=== PATIENT | female | born 1960 ===

== ENCOUNTER 2017-09-16 13:33 | Emergency (ER) | payer OTHER, BC ==
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
[2017-09-16] MEDS ORDERED: NORCO 5/325 PO ONE (18:16)
[2017-09-16] MEDS ORDERED: MOTRIN PO ONE ×2 (18:18→18:19)
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
--- NOTE | 2017-09-16 19:49 | Cat Scan Report ---
FINAL REPORT PROCEDURE: CT LUMBAR SPINE WO CON TECHNIQUE: Computerized axial tomography of the lumbar spine was performed from T12 to the sacrum without contrast material. HISTORY: L1-t12 compression fracture COMPARISON: No prior studies are available for comparison. FINDINGS: There is a acute compression fracture involving the upper 3rd of the L1 vertebral body. There is approximately 30 percent loss height. There is mild retropulsion of a portion of the superior aspect of the posterior endplate. This is flattening the thecal sac. The spinal canal is narrowed slightly greater on the left than the right. I am unable to clearly visualize the conus to determine if there is any compression of the conus. The spinal canal is narrowed approximately 30-40 percent. Pedicles than the remainder of the posterior elements are intact. There is no subluxation. No other fractures are identified. Mild anterior osteophytic spurring is seen L2-3, L3-4 and L4-5 disc spaces. There is a mild diffuse posterior disc bulge L3-4 flattening the thecal sac without focal disc herniation. There is also mild disc bulge at L4-5. IMPRESSION: Compression fracture superior aspect L1 vertebral body with approximately 30 percent loss in height. There is retropulsion of a portion of the superior aspect of the posterior endplate narrowing the spinal canal approximately 30-40 percent. Please see above comments. No other fractures are identified. Mild degenerative disc disease seen in the remainder of the lumbar spine as described.
--- NOTE | 2017-09-16 20:01 | Cat Scan Report ---
FINAL REPORT PROCEDURE: CT THORACIC SPINE WO CON TECHNIQUE: Computerized axial tomography of the thoracic spine was performed from C7 - L1 without contrast material. HISTORY: l1-t12 compression fracture COMPARISON: No prior studies are available for comparison. FINDINGS: Superior aspect of the L1 vertebral body is only minimally included on this series. A fracture of the L1 vertebral body is visualized with retropulsion of a portion of the posterior endplate. This is better visualized on the CT scan of the lumbar spine. No fractures of the thoracic spine are visualized. There is mild wide are Berto thoracic scoliosis convex to the right. Diffuse degenerative disc disease is seen throughout the thoracic spine greatest in the lower thoracic spine with anterior osteophytic spurring. No focal disc herniations or spinal stenosis identified. Posterior elements are intact. Schmorl's node is seen involving the superior endplate of T12. Vacuum disc phenomena is present at T11-T12. IMPRESSION: Acute compression fracture superior endplate L1 as described. This is better visualized on CT scan of the lumbar spine also performed today. Please see report on CT scan lumbar spine. Degenerative disc disease and scoliosis visualized in the thoracic spine as described. No fractures of the thoracic spine are visualized.
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
[2017-09-16 22:26] VITALS: BP 138/88
== END 2017-09-16 22:31 | disposition left against medical advice (07) ==
LOC: ED 13:33
DX: S32.010A Wedge compression fracture of first lumbar vertebra, initial encounter for closed fracture (principal); M54.42 Lumbago with sciatica, left side; M54.41 Lumbago with sciatica, right side; M51.36 Other intervertebral disc degeneration, lumbar region; I10 Essential (primary) hypertension; V49.19XA Passenger injured in collision with other motor vehicles in nontraffic accident, initial encounter; Y93.89 Activity, other specified; Y99.8 Other external cause status; Y92.488 Other paved roadways as the place of occurrence of the external cause
CPT/HCPCS: 72100; 72128; 72131